=== PATIENT | female | born 1990 | race Hispanic/Latino ===

== ENCOUNTER 2020-01-24 09:14 | Emergency (ER) | payer SELFPAY ==
[2020-01-24 09:59] LABS: APPEARANCE,URINE Cloudy (CLEAR); BILIRUBIN,URINE Negative (NEGATIVE); COLOR,URINE Yellow (YELLOW); GLUCOSE, URINE (UA) Negative (NEGATIVE); KETONES,URINE Negative (NEGATIVE); LEUKOCYTE ESTERASE ,URINE Small (NEGATIVE); NITRATE,URINE Negative (NEGATIVE); OCCULT BLOOD,URINE Moderate (NEGATIVE); PROTEIN,URINE >=1000 mg/dL (NEGATIVE); UROBILINOGEN,URINE 0.2 mg/dL (0.2-1.0)
[2020-01-24] MEDS ORDERED: ACETAMINOPHEN 325 MG TAB ONE (10:02)
[2020-01-24] MEDS ORDERED: PHENAZOPYRIDINE HCL 200 MG TABLET ONE (10:03)
[2020-01-24 10:13] LABS: HCG,QUAL RESULT NEGATIVE (NEGATIVE)
[2020-01-24 10:14] LABS: BACTERIA,URINE Few /HPF (None Seen); MUCUS,URINE Few LPF (None Seen); RBC,URINE 0-1 /HPF (0-1); SQUAMOUS EPITHELIAL CELL,UR Few /HPF (0-2)
== END 2020-01-24 13:03 | disposition home or self-care (01) ==
LOC: EDH 09:14
DX: N39.0 Urinary tract infection, site not specified (principal)
CPT/HCPCS: 81001; 81025; 87088

== ENCOUNTER 2021-12-28 10:33 | Inpatient (IN) | payer OTHER ==
[~2021-12-28] VITALS: Ht 154.9 cm; Wt 66.5 kg
[2021-12-28 10:53] LABS: BASOPHILS % (AUTO) 0.6 % (0.0-5.0); EOSINOPHILS % (AUTO) 3.3 % (0.0-8.0); HEMATOCRIT 22.2 % (36-48); LYMPHOCYTES % (AUTO) 23.1 % (21.0-51.0); MEAN CORPUSCULAR HEMOGLOBIN 25.5 pg (27.0-33.0); MEAN CORPUSCULAR HGB CONC 31.1 g/dL (32.0-36.0); MEAN CORPUSCULAR VOLUME 81.9 fL (79-99); MONOCYTES % (AUTO) 6.8 % (3.0-13.0); NEUTROPHILS % (AUTO) 65.8 % (40.0-77.0); PLATELET COUNT (AUTO) 207 K/uL (130-400); RED BLOOD CELL COUNT(AUTO) 2.71 MIL/uL (4.00-5.50); RED CELL DISTRIBUTION WIDTH 13.2 % (11.0-15.5); WHITE BLOOD COUNT (AUTO) 5.4 K/uL (4.8-10.8)
[2021-12-28 11:04] LABS: CARBON DIOXIDE 19 mmol/L (21-32); CHLORIDE 107 mmol/L (101-111); CREATININE 4.5 mg/dL (0.5-1.5); GLOMERULAR FILTR. RATE CALC 12 mL/min (>60); GLUCOSE,RANDOM 88 mg/dL (70-105); POTASSIUM 5.6 mmol/L (3.5-5.1); SODIUM SERUM 137 mmol/L (136-145); UREA NITROGEN, BLOOD 40 mg/dL (7-18)
[2021-12-28 11:08] LABS: ALANINE AMINOTRANSFERASE 18 U/L (12-78); ALBUMIN 3.1 g/dL (3.5-5.0); ALCOHOL, BLOOD < 3 mg/dL (0-10); ASPARTATE AMINOTRANSFERASE 18 U/L (10-37); BILIRUBIN,TOTAL 0.2 mg/dL (0.2-1.0)
[2021-12-28 11:11] LABS: APPEARANCE,URINE Cloudy (CLEAR); BILIRUBIN,URINE Negative (NEGATIVE); COLOR,URINE Yellow (YELLOW); GLUCOSE, URINE (UA) Negative (NEGATIVE); KETONES,URINE Negative (NEGATIVE); LEUKOCYTE ESTERASE ,URINE Trace (NEGATIVE); NITRATE,URINE Negative (NEGATIVE); OCCULT BLOOD,URINE Negative (NEGATIVE); PROTEIN,URINE >=1000 mg/dL (NEGATIVE); UROBILINOGEN,URINE 0.2 mg/dL (0.2-1.0)
[2021-12-28 11:14] LABS: HCG,QUAL RESULT NEGATIVE (NEGATIVE)
[2021-12-28 11:19] LABS: AMPHET/METH SCREEN,URINE NEGATIVE (NEGATIVE); BARBITURATE SCREEN, URINE NEGATIVE (NEGATIVE); BENZODIAZEPINES SCREEN,URINE NEGATIVE (NEGATIVE); CANNABINOID SCREEN,URINE NEGATIVE (NEGATIVE); COCAINE SCREEN,URINE NEGATIVE (NEGATIVE); OPIATE SCREEN,URINE NEGATIVE (NEGATIVE); PHENCYCLIDINE SCREEN,URINE NEGATIVE (NEGATIVE)
[2021-12-28 11:32] LABS: BACTERIA,URINE Rare /HPF (None Seen); RBC,URINE 0-1 /HPF (0-1); WBC,URINE 0-1 /HPF (0-1)
[2021-12-28 11:33] LABS: SQUAMOUS EPITHELIAL CELL,UR Few /HPF (0-2)
[2021-12-28 11:38] LABS: ACETAMINOPHEN < 1 mcg/mL (10-30); SALICYLATE < 2.8 mg/dL (2.8-20.0)
[2021-12-28] MEDS ORDERED: HYDRALAZINE 20MG/ML VIAL ONE (12:35)
[2021-12-28] MEDS: HYDRALAZINE 20MG/ML VIAL IV ONE ×2 (12:40→13:38)
[2021-12-28] MEDS ORDERED: ONDANSETRON 4MG INJ ONE ×2 (13:41→16:12)
[2021-12-28] MEDS ORDERED: ONDANSETRON 4MG INJ IVP ONE (14:00)
[2021-12-28] MEDS ORDERED: ACETAMINOPHEN 325 MG TAB ONE (15:54)
[2021-12-28] MEDS ORDERED: DIPHENHYDRAMINE HCL 25 MG CAPSULE PO PRN (16:30)
[2021-12-28] MEDS ORDERED: LACTULOSE 20 GM/30 ML UDCUP PO PRN (16:30)
[2021-12-28] MEDS ORDERED: MAG/ALUM/SIMETH 30 ML UDCUP PO PRN (16:30)
[2021-12-28] MEDS ORDERED: ONDANSETRON 4MG INJ IV PRN (16:30)
[2021-12-28] MEDS ORDERED: ACETAMINOPHEN 325 MG TAB PO PRN (16:30)
[2021-12-28] MEDS ORDERED: GUAIFENESIN-DM 200/20 MG 10 ML PO PRN (16:30)
[2021-12-28] MEDS ORDERED: NITROGLYCERIN 0.4 MG SL TAB SL PRN (16:30)
[2021-12-28 16:34] LABS: RETICULOCYTE % (AUTO) 2.81 % (0.42-2.23)
[2021-12-28 17:07] LABS: % IRON SATURATION 12.9 % (22-44)
[2021-12-28] MEDS ORDERED: KAYEXALATE 15GM/60ML PO ONE (18:00)
[2021-12-28] MEDS: ACETAMINOPHEN WITH CODEINE 1 TAB TAB PO PRN (18:21)
[2021-12-28] MEDS ORDERED: CLONIDINE HCL 0.1 MG TABLET ONE (18:38)
[2021-12-28 18:48] LABS: PROTEIN,URINE RANDOM 621.7 mg/dL (0-11.9)
[2021-12-28] MEDS: LABETALOL HCL 200 MG TABLET PO SCH (21:52)
[2021-12-28] MEDS: FAMOTIDINE 20MG VIAL IV SCH (21:53)
[2021-12-28] MEDS: NIFEDIPINE 10 MG CAP PO SCH (21:53)
[2021-12-29 01:15] VITALS: BP 148/92
[2021-12-29 04:00] VITALS: BP 148/86
[2021-12-29 04:27] LABS: HEPATITIS A IGM ANTIBODY Non-Reactive (Negative); HEPATITIS B CORE IGM ANTIBODY Non-Reactive (Negative); HEPATITIS B SURFACE ANTIGEN Non-Reactive (Negative); HEPATITIS C ANTIBODY Non-Reactive (NEGATIVE)
[2021-12-29 08:00] VITALS: BP 149/87
[2021-12-29 08:26] LABS: BASOPHILS % (AUTO) 0.6 % (0.0-5.0); LYMPHOCYTES % (AUTO) 20.5 % (21.0-51.0); MEAN CORPUSCULAR HEMOGLOBIN 26.7 pg (27.0-33.0); MEAN CORPUSCULAR VOLUME 80.9 fL (79-99); MONOCYTES % (AUTO) 6.3 % (3.0-13.0); NEUTROPHILS % (AUTO) 70.4 % (40.0-77.0); PLATELET COUNT (AUTO) 195 K/uL (130-400); RED BLOOD CELL COUNT(AUTO) 2.36 MIL/uL (4.00-5.50); RED CELL DISTRIBUTION WIDTH 13.2 % (11.0-15.5); WHITE BLOOD COUNT (AUTO) 5.1 K/uL (4.8-10.8)
[2021-12-29 08:34] LABS: CREATININE 4.4 mg/dL (0.5-1.5); POTASSIUM 3.8 mmol/L (3.5-5.1)
[2021-12-29 08:38] LABS: ALBUMIN 2.7 g/dL (3.5-5.0); BILIRUBIN,TOTAL 0.2 mg/dL (0.2-1.0)
[2021-12-29] MEDS ORDERED: IRON SUCROSE COMPLEX 100 MG in 0.9%NACL 50ML 50 ML IV SCH (09:00)
[2021-12-29 09:20] LABS: HEMATOCRIT 19.1 % (36-48)
[2021-12-29] MEDS: NIFEDIPINE 10 MG CAP PO SCH ×3 (10:52→22:03)
[2021-12-29] MEDS: IRON SUCROSE COMPLEX 100 MG/5 ML VIAL IVP SCH (10:53)
[2021-12-29] MEDS: FAMOTIDINE 20MG VIAL IV SCH ×2 (10:53→22:03)
[2021-12-29] MEDS: LABETALOL HCL 200 MG TABLET PO SCH ×3 (10:53→22:03)
[2021-12-29] MEDS: ACETAMINOPHEN WITH CODEINE 1 TAB TAB PO PRN (11:20)
[2021-12-29 12:00] VITALS: BP 149/90
[2021-12-29 16:00] VITALS: BP 114/78
[2021-12-29 19:00] VITALS: BP 134/86
[2021-12-29] MEDS: EPOETIN ALFA-EPBX (ESRD) 10,000 UNIT/ML VIAL SQ SCH (22:08)
[2021-12-30] VITALS (8 sets, daily range): BP systolic 118–182; BP diastolic 78–111
[2021-12-30 05:08] LABS: BASOPHILS % (AUTO) 0.3 % (0.0-5.0); EOSINOPHILS % (AUTO) 2.5 % (0.0-8.0); HEMATOCRIT 21.1 % (36-48); LYMPHOCYTES % (AUTO) 22.9 % (21.0-51.0); MEAN CORPUSCULAR HGB CONC 31.3 g/dL (32.0-36.0); MEAN CORPUSCULAR VOLUME 83.1 fL (79-99); MONOCYTES % (AUTO) 7.7 % (3.0-13.0); NEUTROPHILS % (AUTO) 66.3 % (40.0-77.0); PLATELET COUNT (AUTO) 175 K/uL (130-400); RED BLOOD CELL COUNT(AUTO) 2.54 MIL/uL (4.00-5.50); RED CELL DISTRIBUTION WIDTH 13.5 % (11.0-15.5); WHITE BLOOD COUNT (AUTO) 6.4 K/uL (4.8-10.8)
[2021-12-30 05:43] LABS: ALBUMIN 2.6 g/dL (3.5-5.0); BILIRUBIN,TOTAL 0.3 mg/dL (0.2-1.0); CREATININE 4.5 mg/dL (0.5-1.5); POTASSIUM 3.7 mmol/L (3.5-5.1); TOTAL PROTEIN, SERUM 5.8 g/dL (6.0-8.3)
[2021-12-30] MEDS: FAMOTIDINE 20MG VIAL IV SCH ×2 (07:57→21:01)
[2021-12-30] MEDS: NIFEDIPINE 10 MG CAP PO SCH ×4 (07:57→21:02)
[2021-12-30] MEDS: IRON SUCROSE COMPLEX 100 MG/5 ML VIAL IVP SCH (07:57)
[2021-12-30] MEDS: LABETALOL HCL 200 MG TABLET PO SCH ×3 (08:00→21:01)
[2021-12-30] MEDS ORDERED: COMPOUND IV MISC 1 EACH IVSOLN MISC PRN (09:00)
[2021-12-30] MEDS ORDERED: LISINOPRIL 5 MG TABLET PO SCH (09:00)
[2021-12-30] MEDS ORDERED: IRON SUCROSE COMPLEX 100 MG/5 ML VIAL IVP SCH (09:00)
[2021-12-30 09:13] LABS: CHOLESTEROL 163 mg/dL (<200); HDL CHOLESTEROL 52 mg/dL (35-85); LDL DIRECT 85 mg/dL (0-99); TRIGLYCERIDES 171 mg/dL (30-200)
[2021-12-30] MEDS: IRON SUCROSE COMPLEX 200 MG in 0.9% NACL 250ML 250 ML IVP SCH (10:39)
[2021-12-30] MEDS: HEPARIN 5,000 UNIT VIAL SQ SCH ×2 (10:54→21:02)
[2021-12-30] MEDS: LISINOPRIL 5 MG TABLET PO SCH (11:00)
[2021-12-30 12:02] LABS: HEMATOCRIT 24.9 % (36-48)
[2021-12-31] VITALS (7 sets, daily range): BP systolic 91–175; BP diastolic 52–103
[2021-12-31 07:14] LABS: BASOPHILS % (AUTO) 0.8 % (0.0-5.0); EOSINOPHILS % (AUTO) 2.5 % (0.0-8.0); HEMATOCRIT 23.6 % (36-48); LYMPHOCYTES % (AUTO) 22.9 % (21.0-51.0); MEAN CORPUSCULAR HEMOGLOBIN 27.5 pg (27.0-33.0); MEAN CORPUSCULAR HGB CONC 33.5 g/dL (32.0-36.0); MEAN CORPUSCULAR VOLUME 82.2 fL (79-99); MONOCYTES % (AUTO) 9.6 % (3.0-13.0); NEUTROPHILS % (AUTO) 63.8 % (40.0-77.0); PLATELET COUNT (AUTO) 164 K/uL (130-400); RED BLOOD CELL COUNT(AUTO) 2.87 MIL/uL (4.00-5.50); RED CELL DISTRIBUTION WIDTH 13.5 % (11.0-15.5); WHITE BLOOD COUNT (AUTO) 5.1 K/uL (4.8-10.8)
[2021-12-31 07:28] LABS: ALBUMIN 2.7 g/dL (3.5-5.0); BILIRUBIN,TOTAL 0.3 mg/dL (0.2-1.0); CREATININE 4.8 mg/dL (0.5-1.5); POTASSIUM 3.9 mmol/L (3.5-5.1); TOTAL PROTEIN, SERUM 6.2 g/dL (6.0-8.3)
[2021-12-31] MEDS: IRON SUCROSE COMPLEX 200 MG in 0.9% NACL 250ML 250 ML IVP SCH (09:06)
[2021-12-31] MEDS: LABETALOL HCL 200 MG TABLET PO SCH ×3 (09:06→20:21)
[2021-12-31] MEDS: NIFEDIPINE 10 MG CAP PO SCH ×3 (09:07→20:21)
[2021-12-31] MEDS: FAMOTIDINE 20MG VIAL IV SCH ×2 (09:08→20:20)
[2021-12-31] MEDS: LISINOPRIL 5 MG TABLET PO SCH (09:08)
[2021-12-31] MEDS: HEPARIN 5,000 UNIT VIAL SQ SCH ×2 (09:12→20:20)
[2021-12-31] MEDS: IRON SUCROSE COMPLEX 100 MG/5 ML VIAL IVP SCH (12:38)
[2021-12-31] MEDS: ACETAMINOPHEN WITH CODEINE 1 TAB TAB PO PRN (14:49)
[2021-12-31] MEDS: EPOETIN ALFA-EPBX (ESRD) 10,000 UNIT/ML VIAL SQ SCH (21:08)
[2022-01-01 04:00] VITALS: BP 165/109
[2022-01-01 04:59] LABS: BASOPHILS % (AUTO) 0.4 % (0.0-5.0); EOSINOPHILS % (AUTO) 1.7 % (0.0-8.0); HEMATOCRIT 24.5 % (36-48); LYMPHOCYTES % (AUTO) 18.7 % (21.0-51.0); MEAN CORPUSCULAR HEMOGLOBIN 26.9 pg (27.0-33.0); MEAN CORPUSCULAR HGB CONC 32.7 g/dL (32.0-36.0); MEAN CORPUSCULAR VOLUME 82.5 fL (79-99); MONOCYTES % (AUTO) 9.9 % (3.0-13.0); NEUTROPHILS % (AUTO) 69.2 % (40.0-77.0); PLATELET COUNT (AUTO) 162 K/uL (130-400); RED BLOOD CELL COUNT(AUTO) 2.97 MIL/uL (4.00-5.50); RED CELL DISTRIBUTION WIDTH 13.5 % (11.0-15.5); WHITE BLOOD COUNT (AUTO) 6.9 K/uL (4.8-10.8)
[2022-01-01 05:30] LABS: ALBUMIN 2.8 g/dL (3.5-5.0); BILIRUBIN,TOTAL 0.4 mg/dL (0.2-1.0); CREATININE 4.8 mg/dL (0.5-1.5); POTASSIUM 4.1 mmol/L (3.5-5.1); TOTAL PROTEIN, SERUM 6.2 g/dL (6.0-8.3)
[2022-01-01 08:00] VITALS: BP 163/75
[2022-01-01] MEDS: NIFEDIPINE 10 MG CAP PO SCH (09:18)
[2022-01-01] MEDS: LABETALOL HCL 200 MG TABLET PO SCH (09:19)
[2022-01-01] MEDS: FAMOTIDINE 20MG VIAL IV SCH (09:19)
[2022-01-01] MEDS: IRON SUCROSE COMPLEX 100 MG/5 ML VIAL IVP SCH (09:19)
[2022-01-01] MEDS: LISINOPRIL 5 MG TABLET PO SCH (09:19)
[2022-01-01] MEDS: HEPARIN 5,000 UNIT VIAL SQ SCH (09:21)
[2022-01-01] MEDS ORDERED: LABE200T5 PO (11:46)
[2022-01-01] MEDS ORDERED: NIFE10 PO (11:46)
[2022-01-01] MEDS ORDERED: LISI5TAB21 PO (11:46)
== END 2022-01-01 13:00 | disposition home or self-care (01) | DRG 683 ==
LOC: EDH 10:33 → EDHIP 16:18 → 3BH 12-29 01:13
PROVIDERS: ADMIT Internal Medicine; ATTEND Internal Medicine
PROC: 30233N1 Transfusion of Nonautologous Red Blood Cells into Peripheral Vein, Percutaneous Approach (ICD-10-PCS; principal; 2021-12-29)
DX: N17.9 Acute kidney failure, unspecified (principal); D62 Acute posthemorrhagic anemia; N92.0 Excessive and frequent menstruation with regular cycle; I16.0 Hypertensive urgency; N18.9 Chronic kidney disease, unspecified; I12.9 Hypertensive chronic kidney disease with stage 1 through stage 4 chronic kidney disease, or unspecified chronic kidney disease; E87.5 Hyperkalemia; F41.9 Anxiety disorder, unspecified
CPT/HCPCS: 36415; 36430; 70450; 71045; 76770; 80051; 80053; 80061; 80074; 80305; 81001; 81025; 82570; 82607; 82728; 82948; 83520; 84156; 84443; 84484; 85014; 85018; 85025; 86038; 86160; 86162; 86215; 86235; 86850; 86900; 86901; 86923; 93005; 93975; G0378; G0481; J0360; J1644; J1756; J2405; J3490; J7050; P9016

== ENCOUNTER 2022-02-22 10:11 | Emergency (ER) | payer OTHER ==
[~2022-02-22] VITALS: Ht 154.9 cm; Wt 63.5 kg
[~2022-02-22 10:11] MED LIST: LABE200T5 PO; LISI5TAB21 PO; NIFE10 PO
[2022-02-22 10:42] LABS: BASOPHILS % (AUTO) 0.8 % (0.0-5.0); EOSINOPHILS % (AUTO) 2.9 % (0.0-8.0); HEMATOCRIT 24.1 % (36-48); MEAN CORPUSCULAR HEMOGLOBIN 26.9 pg (27.0-33.0); MEAN CORPUSCULAR HGB CONC 32.4 g/dL (32.0-36.0); MEAN CORPUSCULAR VOLUME 83.1 fL (79-99); MONOCYTES % (AUTO) 7.4 % (3.0-13.0); NEUTROPHILS % (AUTO) 69.7 % (40.0-77.0); PLATELET COUNT (AUTO) 204 K/uL (130-400); RED CELL DISTRIBUTION WIDTH 14.4 % (11.0-15.5); WHITE BLOOD COUNT (AUTO) 4.9 K/uL (4.8-10.8)
[2022-02-22 11:08] LABS: CREATININE 5.1 mg/dL (0.5-1.5); POTASSIUM 4.2 mmol/L (3.5-5.1)
[2022-02-22 11:13] LABS: ALBUMIN 3.3 g/dL (3.5-5.0); BILIRUBIN,TOTAL 0.2 mg/dL (0.2-1.0); TOTAL PROTEIN, SERUM 7.2 g/dL (6.0-8.3)
[2022-02-22 13:14] VITALS: BP 118/81
[2022-02-22] MEDS ORDERED: DOCU-116 PO (13:29)
[2022-02-22] MEDS ORDERED: FERR324T4 PO (13:29)
== END 2022-02-22 14:15 | disposition home or self-care (01) ==
LOC: EDH 10:11
DX: I12.9 Hypertensive chronic kidney disease with stage 1 through stage 4 chronic kidney disease, or unspecified chronic kidney disease (principal); N18.9 Chronic kidney disease, unspecified; D63.1 Anemia in chronic kidney disease; Z79.899 Other long term (current) drug therapy
CPT/HCPCS: 36415; 80053; 85025

== ENCOUNTER 2022-04-26 13:31 | Inpatient (IN) | payer OTHER ==
[~2022-04-26 13:31] MED LIST changes: +DOCU-116 PO; +FERR324T4 PO; -LABE200T5 PO; +LABE200T7 PO
[2022-04-26 14:19] LABS: BASOPHILS % (AUTO) 0.9 % (0.0-5.0); LYMPHOCYTES % (AUTO) 27.3 % (21.0-51.0); MEAN CORPUSCULAR HEMOGLOBIN 27.2 pg (27.0-33.0); MEAN CORPUSCULAR HGB CONC 31.8 g/dL (32.0-36.0); MEAN CORPUSCULAR VOLUME 85.3 fL (79-99); MONOCYTES % (AUTO) 7.6 % (3.0-13.0); NEUTROPHILS % (AUTO) 60.8 % (40.0-77.0); PLATELET COUNT (AUTO) 186 K/uL (130-400); RED BLOOD CELL COUNT(AUTO) 2.32 MIL/uL (4.00-5.50); RED CELL DISTRIBUTION WIDTH 13.8 % (11.0-15.5); WHITE BLOOD COUNT (AUTO) 5.3 K/uL (4.8-10.8)
[2022-04-26 14:22] LABS: APPEARANCE,URINE SL CLOUDY (CLEAR); BILIRUBIN,URINE NEGATIVE (NEGATIVE); COLOR,URINE YELLOW (YELLOW); GLUCOSE, URINE (UA) NEGATIVE (NEGATIVE); KETONES,URINE NEGATIVE (NEGATIVE); LEUKOCYTE ESTERASE ,URINE TRACE (NEGATIVE); NITRATE,URINE NEGATIVE (NEGATIVE); OCCULT BLOOD,URINE TRACE-INTACT (NEGATIVE); PROTEIN,URINE 100 mg/dL (NEGATIVE); UROBILINOGEN,URINE 0.2 mg/dL (0.2-1.0)
[2022-04-26 14:23] LABS: HEMATOCRIT 19.8 % (36-48)
[2022-04-26 14:29] LABS: AMPHET/METH SCREEN,URINE NEGATIVE (NEGATIVE); BENZODIAZEPINES SCREEN,URINE POSITIVE (NEGATIVE); CANNABINOID SCREEN,URINE NEGATIVE (NEGATIVE); COCAINE SCREEN,URINE POSITIVE (NEGATIVE); PHENCYCLIDINE SCREEN,URINE NEGATIVE (NEGATIVE)
[2022-04-26 14:32] LABS: CREATININE 5.1 mg/dL (0.5-1.5)
[2022-04-26 14:38] LABS: TOTAL PROTEIN, SERUM 6.5 g/dL (6.0-8.3)
[2022-04-26 15:17] LABS: HCG,QUALITATIVE URINE NEGATIVE (NEGATIVE)
[2022-04-26 15:19] LABS: BACTERIA,URINE Moderate /HPF (None Seen); RBC,URINE 0-1 /HPF (0-1)
[2022-04-26] MEDS ORDERED: 0.9%NACL 1000ML 1,000 ML IV ONE (16:00)
[2022-04-26] MEDS ORDERED: LABETALOL 20MG SYG IV PRN (17:00)
[2022-04-26] MEDS ORDERED: NITROGLYCERIN 0.4 MG SL TAB SL PRN (17:00)
[2022-04-26] MEDS ORDERED: ONDANSETRON 4MG INJ IV PRN (17:00)
[2022-04-26] MEDS ORDERED: LACTULOSE 20 GM/30 ML UDCUP PO PRN (17:00)
[2022-04-26] MEDS ORDERED: ACETAMINOPHEN 325 MG TAB PO PRN ×2 (17:00)
[2022-04-26] MEDS ORDERED: NIFEDIPINE ER 30 MG TAB PO SCH (17:30)
[2022-04-26 17:33] LABS: RETICULOCYTE % (AUTO) 5.15 % (0.42-2.23)
[2022-04-26 17:43] LABS: INR 1.09 (0.85-1.15); PROTHROMBIN TIME 11.8 SEC (9.6-11.6)
[2022-04-26 17:44] LABS: PARTIAL THROMBOPLASTIN TIME 30.7 SEC (26.3-35.5)
[2022-04-26] MEDS ORDERED: ASPIRIN 81MG CHEW TAB PO ONE (18:00)
[2022-04-26 20:00] VITALS: BP 171/100
[2022-04-26] MEDS: MINOXIDIL 2.5 MG TAB PO SCH (21:39)
[2022-04-26] MEDS: SODIUM BICARBONATE 650 MG TAB PO SCH (21:39)
[2022-04-26] MEDS: FAMOTIDINE 20MG TAB PO SCH (21:39)
[2022-04-27 00:13] VITALS: BP 131/74
[2022-04-27 03:53] VITALS: BP 132/90
[2022-04-27 05:29] LABS: BASOPHILS % (AUTO) 0.6 % (0.0-5.0); EOSINOPHILS % (AUTO) 2.1 % (0.0-8.0); HEMATOCRIT 23.3 % (36-48); LYMPHOCYTES % (AUTO) 24.8 % (21.0-51.0); MEAN CORPUSCULAR HEMOGLOBIN 27.7 pg (27.0-33.0); MEAN CORPUSCULAR HGB CONC 32.6 g/dL (32.0-36.0); NEUTROPHILS % (AUTO) 65.3 % (40.0-77.0); PLATELET COUNT (AUTO) 184 K/uL (130-400); RED BLOOD CELL COUNT(AUTO) 2.74 MIL/uL (4.00-5.50); RED CELL DISTRIBUTION WIDTH 13.6 % (11.0-15.5); WHITE BLOOD COUNT (AUTO) 5.3 K/uL (4.8-10.8)
[2022-04-27 05:45] LABS: INR 1.09 (0.85-1.15); PROTHROMBIN TIME 11.8 SEC (9.6-11.6)
[2022-04-27 06:08] LABS: CREATININE 4.9 mg/dL (0.5-1.5); POTASSIUM 4.1 mmol/L (3.5-5.1)
[2022-04-27 07:30] VITALS: BP 137/80
[2022-04-27] MEDS ORDERED: NIFEDIPINE ER 30 MG TAB PO SCH (09:00)
[2022-04-27] MEDS: SODIUM BICARBONATE 650 MG TAB PO SCH ×3 (09:12→21:00)
[2022-04-27] MEDS: ASPIRIN 81MG CHEW TAB PO SCH (09:12)
[2022-04-27] MEDS: MINOXIDIL 2.5 MG TAB PO SCH ×2 (09:12→21:00)
[2022-04-27 11:00] VITALS: BP 116/74
[2022-04-27] MEDS ORDERED: CEFTRIAXONE 1G VIAL IVP SCH (12:30)
[2022-04-27] MEDS ORDERED: RENAL DOSE IV SCH (12:30)
[2022-04-27 15:30] VITALS: BP 123/68
[2022-04-27] MEDS: FAMOTIDINE 20MG TAB PO SCH (21:00)
[2022-04-27] MEDS ORDERED: EPOETIN ALFA-EPBX (NON-ESRD) 10,000 UNIT/ML VIAL SQ SCH (21:00)
[2022-04-27 21:06] VITALS: BP 116/77
[2022-04-28 00:20] VITALS: BP 114/74
[2022-04-28 04:25] VITALS: BP 128/87
[2022-04-28 05:58] LABS: BASOPHILS % (AUTO) 0.8 % (0.0-5.0); EOSINOPHILS % (AUTO) 2.6 % (0.0-8.0); HEMATOCRIT 21.1 % (36-48); LYMPHOCYTES % (AUTO) 23.2 % (21.0-51.0); MEAN CORPUSCULAR HEMOGLOBIN 27.5 pg (27.0-33.0); MEAN CORPUSCULAR HGB CONC 33.2 g/dL (32.0-36.0); MEAN CORPUSCULAR VOLUME 82.7 fL (79-99); MONOCYTES % (AUTO) 6.6 % (3.0-13.0); NEUTROPHILS % (AUTO) 66.4 % (40.0-77.0); PLATELET COUNT (AUTO) 187 K/uL (130-400); RED BLOOD CELL COUNT(AUTO) 2.55 MIL/uL (4.00-5.50); RED CELL DISTRIBUTION WIDTH 13.8 % (11.0-15.5)
[2022-04-28 06:19] LABS: ASPARTATE AMINOTRANSFERASE 7 U/L (10-37); CARBON DIOXIDE 12 mmol/L (21-32); CHLORIDE 110 mmol/L (101-111); CREATININE 4.7 mg/dL (0.5-1.5); GLOMERULAR FILTR. RATE CALC 11 mL/min (>60); GLUCOSE,RANDOM 87 mg/dL (70-105); PHOSPHORUS 4.7 mg/dL (2.5-4.9); POTASSIUM 3.8 mmol/L (3.5-5.1); SODIUM SERUM 138 mmol/L (136-145); TOTAL PROTEIN, SERUM 6.4 g/dL (6.0-8.3); UREA NITROGEN, BLOOD 50 mg/dL (7-18)
[2022-04-28 06:22] LABS: ALANINE AMINOTRANSFERASE < 6 U/L (12-78)
[2022-04-28] MEDS: ASPIRIN 81MG CHEW TAB PO SCH (08:30)
[2022-04-28] MEDS: MINOXIDIL 2.5 MG TAB PO SCH (08:31)
[2022-04-28] MEDS: SODIUM BICARBONATE 650 MG TAB PO SCH (08:31)
[2022-04-28 08:42] LABS: APPEARANCE,URINE CLEAR (CLEAR); BILIRUBIN,URINE NEGATIVE (NEGATIVE); COLOR,URINE YELLOW (YELLOW); GLUCOSE, URINE (UA) NEGATIVE (NEGATIVE); KETONES,URINE NEGATIVE (NEGATIVE); LEUKOCYTE ESTERASE ,URINE SMALL (NEGATIVE); NITRATE,URINE NEGATIVE (NEGATIVE); OCCULT BLOOD,URINE TRACE-INTACT (NEGATIVE); PROTEIN,URINE 100 mg/dL (NEGATIVE); UROBILINOGEN,URINE 0.2 mg/dL (0.2-1.0)
[2022-04-28] MEDS ORDERED: Vitamin B Complex/Vit C/Folic Acid PO SCH (09:00)
[2022-04-28] MEDS ORDERED: NIFEDIPINE ER 30 MG TAB PO SCH (09:00)
[2022-04-28 09:01] LABS: BACTERIA,URINE Rare /HPF (None Seen); RBC,URINE 0-1 /HPF (0-1); SQUAMOUS EPITHELIAL CELL,UR Rare /HPF (0-2); WBC,URINE 0-1 /HPF (0-1)
[2022-04-28] MEDS ORDERED: NIFE-40 PO (11:11)
[2022-04-28] MEDS ORDERED: CEFU500T67 PO (11:11)
[2022-04-28] MEDS ORDERED: MINO2.5 PO (11:11)
[2022-04-28] MEDS ORDERED: Folic Acid/Vitamin B Comp W-C PO (11:11)
[2022-04-28] MEDS ORDERED: SODI650T PO (11:11)
== END 2022-04-28 13:45 | disposition home or self-care (01) | DRG 304 ==
LOC: EDH 13:31 → OBSVTOIN 13:32 → EDHIP 13:32 → 3CH 18:53
PROVIDERS: ADMIT Internal Medicine; ATTEND Internal Medicine
PROC: 30233N1 Transfusion of Nonautologous Red Blood Cells into Peripheral Vein, Percutaneous Approach (ICD-10-PCS; principal; 2022-04-26)
DX: I16.1 Hypertensive emergency (principal); G92.8 Other toxic encephalopathy; N18.6 End stage renal disease; N17.9 Acute kidney failure, unspecified; N39.0 Urinary tract infection, site not specified; E87.2 Acidosis; I12.0 Hypertensive chronic kidney disease with stage 5 chronic kidney disease or end stage renal disease; F31.9 Bipolar disorder, unspecified; F14.90 Cocaine use, unspecified, uncomplicated; F13.10 Sedative, hypnotic or anxiolytic abuse, uncomplicated; D64.9 Anemia, unspecified; T42.4X5A Adverse effect of benzodiazepines, initial encounter; Y92.89 Other specified places as the place of occurrence of the external cause; Z79.899 Other long term (current) drug therapy; Z91.19 Patient's noncompliance with other medical treatment and regimen
CPT/HCPCS: 36415; 70450; 76770; 80048; 80053; 80305; 81001; 81025; 82140; 82270; 82550; 82728; 82746; 82948; 83540; 83550; 83735; 83874; 84100; 84484; 84550; 85025; 85045; 85610; 85730; 86850; 86900; 86901; 86923; 87077; 87088; 87186; 93005; 99291; G0378; J0696; J7030; P9016